=== PATIENT | male | born 1995 | race Caucasian/White ===

== ENCOUNTER 2020-03-30 02:51 | Emergency (ER) | payer SELFPAY ==
[~2020-03-30] VITALS: Ht 180.3 cm; Wt 68.0 kg
[2020-03-30 02:51] VITALS: BP 133/80
[2020-03-30] MEDS ORDERED: TDAP [DIPH/PERTUSSIS/TET] 0.5 ML VIAL IM ONE ×2 (03:17→03:30)
[2020-03-30] MEDS ORDERED: LIDOCAINE 1%-EPI 1:100,000 20 ML VIAL ONE (04:04)
--- NOTE | 2020-03-30 04:51 | NUR ---
Patient discharged to home in stable condition. Written and verbal after care instructions given. Patient verbalizes understanding of instruction.
== END 2020-03-30 05:03 | disposition home or self-care (01) ==
LOC: ER 02:57
DX: S01.81XA Laceration without foreign body of other part of head, initial encounter (principal); F12.10 Cannabis abuse, uncomplicated; R55 Syncope and collapse; Z88.5 Allergy status to narcotic agent; W22.8XXA Striking against or struck by other objects, initial encounter; Y93.89 Activity, other specified; Y92.89 Other specified places as the place of occurrence of the external cause; Y99.8 Other external cause status
CPT/HCPCS: 12011; 70450; 90471; 90715; 99284; J3490

== ENCOUNTER 2020-04-05 10:48 | Emergency (ER) | payer OTHER ==
[~2020-04-05] VITALS: Ht 180.3 cm; Wt 65.8 kg
[2020-04-05 10:53] VITALS: BP 132/79
--- NOTE | 2020-04-05 11:06 | NUR ---
Patient discharged to home in stable condition. Written and verbal after care instructions given. Patient verbalizes understanding of instruction.
== END 2020-04-05 11:10 | disposition home or self-care (01) ==
LOC: ER 10:51
DX: S01.81XD Laceration without foreign body of other part of head, subsequent encounter (principal); Z88.6 Allergy status to analgesic agent; Z60.2 Problems related to living alone; X58.XXXD Exposure to other specified factors, subsequent encounter